=== PATIENT | male | born 1945 ===

== ENCOUNTER 2021-08-12 04:20 | Day surgery (SDC) | payer OTHER ==
[2021-08-02 15:58] VITALS: BMI 28.5
[~2021-08-12 04:20] MED LIST: LIDOCAINE HCL 1% PRESERVATIVE FREE - 30ML VIAL IJ ONE
[2021-08-12] MEDS ORDERED: LIDOCAINE HCL/PF 1% SDV 5ML VIAL ONE (07:26)
[2021-08-12] MEDS ORDERED: LIDOCAINE HCL/PF 2% SDV 5ML VIAL ONE (07:31)
[2021-08-12] MEDS ORDERED: LIDOCAINE HCL 1% PRESERVATIVE FREE - 30ML VIAL IJ ONE (15:31)
[2021-08-12 18:08] VITALS: BP 135/77; PULSE 80; TEMP 97.8
== END 2021-08-12 17:19 | disposition home or self-care (01) ==
LOC: JASU-SURG 04:20
PROVIDERS: ATTEND Pain Medicine Pain Medicine
PROC: 01HY3MZ Insertion of Neurostimulator Lead into Peripheral Nerve, Percutaneous Approach (ICD-10-PCS; principal; 2021-08-12 16:00)
DX: G89.4 Chronic pain syndrome (principal); M54.50 Low back pain, unspecified
CPT/HCPCS: 64555; C1897; 76000-TC-FY

== ENCOUNTER 2021-08-30 05:28 | Day surgery (SDC) | payer OTHER ==
[2021-08-26 13:29] VITALS: BMI 28.5
[2021-08-30] MEDS ORDERED: BUPIVACAINE HCL/PF 0.5% (5MG/ML) 10 ML VIAL ONE (07:15)
[2021-08-30] MEDS ORDERED: BUPIVACAINE HCL/PF 0.75% 10 ML VIAL ONE (07:15)
[2021-08-30] MEDS ORDERED: LIDOCAINE HCL/PF 1% SDV 5ML VIAL ONE ×2 (07:15→11:44)
[2021-08-30] MEDS ORDERED: LIDOCAINE 1% P/F 10 MG/ML VIAL PNB ONE (12:10)
[2021-08-30 12:46] VITALS: BP 127/81; PULSE 72; TEMP 97.6
== END 2021-08-30 13:40 | disposition home or self-care (01) ==
LOC: JASU-SURG 05:28
PROVIDERS: ATTEND Pain Medicine Pain Medicine
PROC: 01HY3MZ Insertion of Neurostimulator Lead into Peripheral Nerve, Percutaneous Approach (ICD-10-PCS; principal; 2021-08-30 12:00)
DX: G89.4 Chronic pain syndrome (principal); M54.50 Low back pain, unspecified
CPT/HCPCS: 64555; C1897; 76000-TC-FY